=== PATIENT | male | born 1965 | race Two or more races ===

== ENCOUNTER 2024-02-04 09:50 | Emergency (ER) | payer OTHER ==
[~2024-02-04] VITALS: Ht 175.3 cm; Wt 86.2 kg
== END 2024-02-04 11:40 | disposition home or self-care (01) ==
LOC: ER 09:51
DX: S93.104A Unspecified dislocation of right toe(s), initial encounter (principal); W11.XXXA Fall on and from ladder, initial encounter; Y93.89 Activity, other specified; Y92.098 Other place in other non-institutional residence as the place of occurrence of the external cause; Y99.8 Other external cause status